=== PATIENT | male | born 1960 | race Caucasian/White ===

== ENCOUNTER 2021-08-28 15:08 | Inpatient (IN) | payer OTHER, SELFPAY ==
[2021-08-28 15:08] VITALS: BP 162/109; PULSE 58; RESP 12; O2SAT 98
--- NOTE | 2021-08-28 15:16 | ED.CHESTPAIN ---
HPI - Chest Pain General Chief Complaint: Chest Pain Stated Complaint: STEMI Time Seen by Provider: 08/28/21 15:12 Source: patient Mode of arrival: ambulatory Limitations: no limitations History of Present Illness HPI narrative: Patient is a 61-year-old male complaining of chest pain, midsternal, pressure, 8 out of 10, radiating to his left arm, accompanied by shortness of breath and diaphoresis started 40 minutes prior to arrival. Patient denies any abdominal pain, nausea, vomiting, fever or chills. Related Data Allergies Allergy/AdvReac Type Severity Reaction Status Date / Time Penicillins Allergy Unknown Verified 08/28/21 15:18 Review of Systems Review of Systems: All systems reviewed & are unremarkable except as noted in HPI and below Constitutional: Constitutional: Denies body ache(s), Denies chills, Denies excessive sweating, Denies fatigue, Denies fever(s), Denies headache(s), Denies lethargy, Denies malaise, Denies weakness and Denies weight loss Eyes: Eyes: Denies blurry vision, Denies change in vision and Denies loss of vision ENT: Denies dizziness, Denies ear discharge, Denies headache(s), Denies lip swelling, Denies epistaxis, Denies nasal congestion, Denies neck pain, Denies throat swelling and Denies tongue swelling Cardiovascular: Cardiovascular: Denies diaphoresis, Denies rapid heart rate, Denies edema, Denies irregular heart rhythm, Denies lightheadedness, Denies palpitations, Denies dyspnea and Denies dyspnea on exertion Respiratory: Respiratory: Denies chest congestion, Denies cough, Denies hemoptysis, Denies dyspnea and Denies dyspnea on exertion Gastrointestinal: Gastrointestinal: Denies abdominal pain, Denies melena, Denies hematochezia, Denies diarrhea, Denies nausea, Denies vomiting and Denies hematemesis Musculoskeletal: Musculoskeletal: Denies abnormal gait, Denies deformity, Denies joint swelling, Denies limited range of motion, Denies neck pain and Denies numbness Neurologic: Denies Abnormal speech present, Denies abnormal gait, Denies confusion, Denies dizziness, Denies headache(s), Denies focal weakness, Denies loss of vision, Denies numbness, Denies Other visual disturbances, Denies Sensory deficit (Neuro) and Denies weakness Psychiatric: Psychiatric: Denies confusion, Denies depression, Denies auditory hallucinations, Denies homicidal ideation and Denies suicidal ideation Endocrine: Endocrine: Denies cold intolerance, Denies excessive sweating, Denies fatigue, Denies heat intolerance and Denies palpitations Hematologic/Lymphatic: Hematologic/Lymphatic: Denies easy bleeding and Denies easy bruising Allergic/Immunologic: Allergic/Immunologic: Denies lip swelling, Denies throat swelling and Denies tongue swelling PMFSH Comments Past medical history: None Family history: Positive for coronary artery disease [place] Social history: Positive for smoker, no EtOH or drug use Exam Const: General: cooperative, healthy appearing, comfortable, no acute distress, well developed, alert and awake; No confusion Orientation/consciousness: oriented to person, oriented to place, oriented to time, patient oriented x3 and No confusion Limitations: no limitations HENMT: Head: normal to inspection, normocephalic and atraumatic Ears: hearing grossly normal bilaterally, TM normal on the right and TM normal on the left General nose exam: Normal external nose present, Normal nares present and No nasal discharge present Face and sinus: normal facial exam Mouth: Yes Normal oral and palatal mucosa present, Yes lip normal, Yes tongue normal and Yes oropharynx normal Throat: posterior oropharynx normal, tonsils normal and uvula midline Eyes: General: appearance normal, both eyes and all related structures Pupils: Equal, round and reactive pupils present EOM: EOMs intact bilaterally Neck: Neck: normal visual inspection, full ROM, no lymphadenopathy and no meningeal signs Chest: Chest palpation & inspection: normal inspection of
[2021-08-28 15:17] VITALS: PULSE 59
[2021-08-28] MEDS: HEPARIN SODIUM 5,000 UNITS/ML VIAL 4000 UNITS IV PUSH (15:19)
--- NOTE | 2021-08-28 15:19 | ECG_ITS ---
Measurements Intervals [place] Rate: 58 P: CA: 0 QRS: 64 QRSD: 110 T: 41 QT: 403 QTc: 396 Interpretive Statements JUNCTIONAL RHYTHM INCOMPLETE RIGHT BUNDLE BRANCH BLOCK ANTEROSEPTAL ST ELEVATION MYOCARDIAL INJURY- ACUTE SUBTLE INFERIOR ST ELEVATION- CONSIDER ACUTE INFARCT BASELINE ARTIFACT- II, III, AVR, AVF, V2-V6 ABNORMAL ECG Electronically Signed On 08-28-2021 16:11:01 REGULATORY AFFAIRS MANAGER by Juliocesar Rios D.O.
[2021-08-28] MEDS: HEPARIN SOD/D5W 100 UNITS/ML 25,000 UNITS/250 ML BAG 9 UNITS IV CONT (15:20)
[2021-08-28 15:22] VITALS: O2SAT 98
[2021-08-28] MEDS: MORPHINE SULFATE (*CRX) 2 MG/ML INJ IV PUSH (15:26)
[2021-08-28 15:27] LABS: Basophils Absolute Auto 0.1 K/mm3 (0.0-0.1); Eosinophils Absolute Auto 0.4 K/mm3 (0-0.3); Hematocrit 50.8 % (42.0-52.0); Hemoglobin 17.4 g/dL (14.0-18.0); Immature Granulocyte Absolute 0.14 K/mm3 (0.00-0.031); Lymphocytes Percent Auto 31.1 % (18.3-44.2); Mean Corpuscular HGB Conc 34.3 g/dl (32-36); Mean Corpuscular Hemoglobin 32.5 pg (26-34); Mean Platelet Volume 10.5 fl (7.4-10.4); Monocytes Percent Auto 7.5 % (2.6-8.5); Neutrophils Absolute Auto 7.6 K/mm3 (1.3-6.7); Neutrophils Percent Auto 56.4 % (45.5-73.1); Platelet Count Result 211 k/mm3 (150-375); Red Blood Count 5.35 M/mm3 (4.6-6.20); Red Cell Distribution Width 13.1 % (11.5-14.5); White Blood Count 13.5 K/mm3 (4.5-10.0)
[2021-08-28] MEDS: ONDANSETRON INJ 4 MG/2 ML VIAL IV PUSH (15:27)
[2021-08-28 15:37] LABS: Anion Gap 6 mmol/L (8-16); Blood Urea Nitrogen 19 mg/dL (9-20); Carbon Dioxide 28 mmol/L (22-30); Chloride 101 mmol/L (98-107); Estimated CRCL calculation 58 ml/min; Estimated Glomerular Filt Rate > 60; Glucose 120 mg/dL (65-110); Potassium 3.6 mmol/L (3.4-5.0); Sodium 135 mmol/L (137-145)
[2021-08-28 15:59] LABS: Troponin I 0.455 ng/mL (0.000-0.034)
--- NOTE | 2021-08-28 16:15 | PC.NURSE ---
spoke with pts . made aware of pts condition upon arrival and process to qc lab technician
[2021-08-28 16:20] LABS: Partial Thromboplastin Time 25.7 SECONDS (22.3-36.8); Prothrombin Time 12.9 Seconds (11.1-14.7)
--- NOTE | 2021-08-28 16:56 | WPDCARDPROC ---
Cardiac Cath Procedure Note Date of procedure:: 08/28/21 Performing physician:: Gal Mosley MD Indication:: Chest pain, diffuse ST elevation Brief clinical history:: this is a 61-year-old man with no documented history of coronary disease he has a chronic cigarette smoker who presents to the hospital with chest pain and has anterior and inferior ST elevation. Procedure Procedure performed:: Emergency coronary angiography left ventriculography placement of intra-aortic balloon pump Sedation/Medication given:: 1 mg Versed Access site:: left femoral artery Estimated blood loss:: 20 cc Procedure note:: patient was brought to the cardiac catheterization lab in the emergency setting described above. The right and left femoral triangles were prepared and draped in the usual fashion. Anesthesia was provided with 1% lidocaine infiltrated locally. Attempts were made to puncture the right femoral artery which was unsuccessful as there was almost no palpable pulse in this vessel. The left groin was then anesthetized in the left femoral artery was punctured and a 6 Hungarian vascular sheath was placed. After this I used a 5 Hungarian JR4 catheter to engage and inject the right coronary artery. I then used a 6 Hungarian CLS 3.5 guiding catheter to engage inject the left coronary artery. There was clearly significant ostial/proximal left main disease as engaging the vessel did result in loss of pressure and ventricularization of the pressure tracing and patient became more unstable. I then exchanged this for a 6 Hungarian CLS guiding catheter with side holes. Additional angiograms were then performed of the left coronary artery. During these pictures the patient once again became hypotensive but less so and then at the end of the angiographic run developed rapid atrial fibrillation and then a run of sustained monomorphic ventricular tachycardia that had to be counter shocked and terminated with 200 joule shock. Following this the angiograms were reviewed in detail. I used a 5 Hungarian angled pigtail catheter to measure left-sided hemodynamics and to inject LV g in the DON projection. After this the decision was made to support the patient with an intra-aortic balloon pump and arrange for transfer to higher level of care for surgical revascularization which is not available at [facility]. Intra-aortic balloon pump was placed the patient received an additional 4000 units of heparin and was started on heparin infusion at 1000 units/hour. Following the counter shocked described above he also received a bolus of intravenous amiodarone. The cardiothoracic surgery consult and [facility] was called and a preparations are being made for arranging for an ICU bed in [facility] and arrangements for surgical myocardial revascularization at that institution. Findings:: Hemodynamics: Central aortic pressure was 190 over 90 left ventricle 190 over 10 end-diastolic 26, no gradient across the aortic valve on pullback. Left ventricle: The LV is normal in size there is good contractility in all visualized segments the global ejection fraction is in the vicinity of 60% by visual estimation left main coronary artery is medium in caliber there is proximal napkin ring like stenosis of approximately 70-80%. Once again the pressure in the left coronary artery is loss to engaging the vessel with the catheters described above. The left anterior descending is a medium caliber vessel extending down to around the apex. There is about 80% stenosis in the proximal segment of the LAD remainder of the LAD and the diagonal branches have mild disease with no significant lesions. Circumflex is a large vessel that is dominant to the posterior circulation. There is high-grade stenosis of 90% in the ostium of the largest major OM branch as well as in the trunk of the circumflex immediately after the this branch takes its origin. The posterior posterolateral branches are m
--- NOTE | 2021-08-28 17:06 | PM.IMHP ---
H&P: HPI History of Present Illness Date/Time: 08/28/21 17:06 Chief Complaint: chest pain Narrative: this is a 61-year-old man I am seeing in the cardiac electronic lab technician as he has been prepared for emergency angiography in the setting of what appears to be ST elevation RI. he has a history of cigarette smoking and a family history of coronary disease but no personal history of cardiac problems. He was at home prior to coming in the hospital and started to experience significant retrosternal like pressure chest pain about 40 minutes prior to arrival. His ECG done by EMS in the field appeared to show ST elevation both in the anterior and in the inferior leads. In the cardiac electronic lab technician as he is being prepared for angiography he is in moderate distress because of chest pain and is mildly diaphoretic. No other history was obtainable in this emergency setting. Review of Systems Review of Systems: ROS unobtainable: Yes unobtainable due to medical condition Meds Home Medications and Allergies Allergies Allergy/AdvReac Type Severity Reaction Status Date / Time Penicillins Allergy Unknown Verified 08/28/21 15:18 Vital Signs Vital Signs - 24 hr 08/28/21 15:08 08/28/21 15:17 08/28/21 15:22 Pulse Rate 58 L 59 L Respiratory Rate 12 Blood Pressure 162/109 H Pulse Oximetry 98 98 Exam Const: General: in distress and uncomfortable Other: Well-developed well-nourished white male appears somewhat older than his stated age in significant distress with chest pain HENMT: Mouth: Yes moist mucous membranes Eyes: Sclera: sclerae normal Pupils: Equal, round and reactive pupils present Neck: Neck: supple and no JVD Other: carotid pulses are intact bilaterally Resp: Effort & Inspection: normal respiratory effort Auscultation: diminished lung sounds Other: breath sounds are diminished in both lung wright Cardio: Rate: regular rate Rhythm: regular rhythm Other: PMI is nondisplaced no murmur S4 is evident GI: GI Palp: Yes Soft to palpation Auscultation: normal bowel sounds Skin: General skin exam: normal color Neuro: Cognition (Neuro): normal cognition Extrem: Other: no edema, distal pulses in the right lower extremity is not palpable 1/4 on the left Psych: Mental Status: mental status grossly normal H&P: Results Labs Labs: Short CBC 08/28/21 Range/Units 15:19 WBC 13.5 H (4.5-10.0) K/mm3 Hgb 17.4 (14.0-18.0) g/dL Hct 50.8 (42.0-52.0) % Plt Count 211 (150-375) k/mm3 BMP 08/28/21 15:19 Sodium 135 L Potassium 3.6 Chloride 101 Carbon Dioxide 28 BUN 19 Creatinine 1.20 Glucose 120 H Calcium 9.0 Cardiac Enzymes 08/28/21 Range/Units 15:19 Troponin I 0.455 H* (0.000-0.034) ng/mL Assessment and Plan Additional Plan this is a 61-year-old man with chronic cigarette smoking presenting with chest pain and very concerning appearing ECG with precordial and inferior ST elevation as well as elevation AVR. Preparations are now being made for emergency angiography and following that plan for revascularization. Gal Mosley MD [facility]
--- NOTE | 2021-08-28 17:37 | SUR.OPER ---
ems here at table side transferring patient to stretcher to transfer patient to [facility] cvu bed 5, report given to nurse, updated, updated. patient a/ox3, c/o chest pain 01/08, balloon pump working apr, bp 117/79, hr 64
--- NOTE | 2021-09-13 13:43 | PM.TDS ---
Transfer Discharge Sum: Prov Provider Date of admission: 08/28/21 15:29 Primary care physician: GANG HEMSTITCHING MACHINE OPERATOR PHYSICIAN Admitting clinician: Gal Mosley MD Attending physician on admission: Gal Mosley Attending physician on discharge: Gal Mosley Discharging clinician: Gal Mosley Anticipated date of transfer: 08/28/21 Receiving physician/facility: [facility] DS: Admitting Diagnosis Discharge Date 08/28/[address]-elevation [place] DS: Discharge Diagnosis Discharge Diagnosis (1) ST elevation (STEMI) myocardial infarction: Qualifiers: Involved coronary artery: unspecified coronary artery Qualified Code(s): I21.3 - ST elevation (STEMI) myocardial infarction of unspecified site Code(s): I21.3 - ST elevation (STEMI) myocardial infarction of unspecified site Status: Acute Transfer Discharge Sum: Hosp Hospital Course Hospital course: Jaocb Guy is a 61 year old male presented to the emergency room with the acute onset of chest pain. Electrocardiogram showed anterolateral ST segment elevation and STEMI protocol was activated he was taken emergently to the cardiac catheterization lab. The patient was no longer having significant chest pain upon arrival to the record label intern. He was found to have a left coronary dominant circulation with high-grade stenosis which was of the proximal to near ostial segment of the left main coronary artery. The right coronary artery was 100% occluded proximally and was presumably a non dominant vessel since the circumflex was dominant. The left ventricular systolic function was nicely preserved. Because of this an intra-aortic balloon pump was placed patient was systemically heparinized and transferred to [facility] for consultation with [facility] cardiothoracic surgery services and hopes of providing surgical myocardial revascularization. Time Spent with Patient Time attestation: Total time spent providing and/or coordinating transfer services: Exam Const: General: cooperative and acute distress HENMT: Head: normal to inspection General nose exam: Normal external nose present Face and sinus: normal facial exam Mouth: Yes Normal oral and palatal mucosa present and Yes moist mucous membranes Throat: posterior oropharynx normal Eyes: Sclera: sclerae normal Pupils: Equal, round and reactive pupils present Neck: Neck: normal visual inspection Resp: Auscultation: clear to auscultation bilaterally and rales Cardio: Jugular venous distension: no JVD Peripheral pulses: Peripheral pulses 2+ throughout GI: Inspection: normal to inspection Auscultation: normal bowel sounds Skin: General skin exam: normal color Extrem: General: normal to inspection
== END 2021-08-28 17:30 | disposition short-term general hospital (02) | DRG 271 ==
LOC: ANHED 15:25 → ANHIMU 15:58 → ANHICU 16:07
PROVIDERS: Admitting Provider Specialist; Emergency Provider Emergency Medicine; Visit Provider Specialist
PROC: 4A023N7 Measurement of Cardiac Sampling and Pressure, Left Heart, Percutaneous Approach (ICD-10-PCS; CPT 93452; principal; 2021-08-28 15:20)
PROC: 5A02210 Assistance with Cardiac Output using Balloon Pump, Continuous (ICD-10-PCS; 2021-08-28 15:20)
DX: I21.11 ST elevation (STEMI) myocardial infarction involving right coronary artery (principal); I47.2 Ventricular tachycardia; I95.89 Other hypotension; I48.91 Unspecified atrial fibrillation; I25.10 Atherosclerotic heart disease of native coronary artery without angina pectoris; Z82.49 Family history of ischemic heart disease and other diseases of the circulatory system; Z87.891 Personal history of nicotine dependence
CPT/HCPCS: 33967; 36415; 80048; 84484; 85025; 85610; 85730; 93005; 93458; 96374; 96375; 99285; C1887; J0282; J1265; J1644; J2250; J2270; J2405; J3010; J7040